=== PATIENT | female | born 1990 | race Caucasian/White ===

== ENCOUNTER 2019-01-22 07:23 | Day surgery (SDC) | payer BC ==
[~2019-01-22 07:23] MED LIST: CEFOXITIN/SWI 2gm 2 GM/20 ML SYR IVP SCH
--- OUTSIDE RECORDS SUMMARY | 2019-01-22 07:29 | XMS REPORT ---
:1990 Author Organization [facility] Address [address] [place] [address] Care Team Providers Name Role Phone Unavailable Unavailable Unavailable Payers Payer Name Policy Type Policy Number Effective Date Expiration Date Problems This patient has no known problems. Allergies, Adverse Reactions, Alerts Allergy Allergy Status Severity Reaction(s) Onset Inactive Treating Comments Name Type Date Date Clinician No Known DA Active U 2018-07 Allergies 00:00:0 0 Medications This patient has no known medications. Results Test Description Test Time Test Comments Text Results Atomic Results Result Comments AMNISURE (ROM) TEST 2018-08-14 00:27:00 Test Item Value Reference Range Comments AMNISURE (ROM) TEST (test code=AMNI) RUPTURED NON-RUPTURE : *Amnisure QC OK? YESAG HEPATITIS B [id number] 21:27:00 Test Item Value Reference Range Comments AG HEPATITIS B SURFACE (test code=HBSAG) NONREACTIVE NONREACTIVE AB HEPATITIS C [id number] 21:27:00 Test Item Value Reference Range Comments AB HEPATITIS C (test code=HCVAB) NONREACTIVE NONREACTIVE SIGNAL TO CUTOFF (test code=CUTOFF) 0.07 <0.80 AB [id number] 21:27:00 Test Item Value Reference Range Comments AB TREPONEMA (test code=TREPAB) NONREACTIVE NONREACTIVE AG HEPATITIS B [id number] 21:09:00 Test Item Value Reference Range Comments AG HEPATITIS B SURFACE (test code=HBSAG) NONREACTIVE NONREACTIVE AB HEPATITIS C [id number] 21:09:00 Test Item Value Reference Range Comments AB HEPATITIS C (test code=HCVAB) NONREACTIVE SIGNAL TO CUTOFF (test code=CUTOFF) <0.80 AB [id number] 21:09:00 Test Item Value Reference Range Comments AB TREPONEMA (test code=TREPAB) NONREACTIVE NONREACTIVE CBC W/AUTO [id number] 10:52:00 Test Item Value Reference Range Comments WHITE BLOOD CELL (test code=WBC) 10.3 K/mm3 6.6-12.1 RED BLOOD CELL (test code=RBC) 4.00 M/mm3 3.45-5.01 HEMOGLOBIN (test code=HGB) 12.6 g/dL 10.7-13.9 HEMATOCRIT (test code=HCT) 37.4 % 32.1-42.1 MEAN CELL VOLUME (test code=MCV) 94 fL 84.1-94.8 MEAN CELL HGB (test code=MCH) 31.5 pg 27-35 MEAN CELL HGB CONCETRATION (test code=MCHC) 33.7 gm/dL 32.2-34.1 RED CELL DISTRIBUTION WIDTH (test code=RDW) 12.2 % 12.4-16.5 PLATELET COUNT (test code=PLT) 250 K/mm3 133-385 IMMATURE PLATELET FRACTION (test code=IPF) 4.4 % 0.0-10.8 MEAN PLATELET VOLUME (test code=MPV) 10.4 fl 9.1-12.7 NEUTROPHIL % (test code=NT%) 78.6 % 56.5-79.4 LYMPHOCYTE % (test code=LY%) 13.3 % 14.3-34.3 MONOCYTE % (test code=MO%) 7.1 % 5.1-10.4 EOSINOPHIL % (test code=EO%) 0.4 % 0.1-3.0 BASOPHIL % (test code=BA%) 0.2 % 0.1-1.0 NEUTROPHIL # (test code=NT#) 8.1 K/mm3 LYMPHOCYTE # (test code=LY#) 1.4 K/mm3 MONOCYTE # (test code=MO#) 0.7 K/mm3 EOSINOPHIL # (test code=EO#) 0.04 K/mm3 BASOPHIL # (test code=BA#) 0.0 K/mm3 RBC MORPHOLOGY REQUIRED (test code=RBCM) NORMAL NORMAL PLATELET MORPHOLOGY REQUIRED (test code=PLTMR) NORMAL NORMAL
[2019-01-22] MEDS ORDERED: ROCURONIUM 50 MG/5 ML VIAL IV ONE (07:53)
[2019-01-22] MEDS ORDERED: LIDOCAINE 2% MPF 5 ML VIAL ONE (07:53)
[2019-01-22] MEDS ORDERED: dexAMETHasone 10 MG/ML VIAL ONE (07:53)
[2019-01-22] MEDS ORDERED: MIDAZOLAM HCL 2 MG/2 ML INJ ONE (07:53)
[2019-01-22] MEDS ORDERED: propofoL 200 MG/20 ML VIAL IV ONE (07:53)
[2019-01-22] MEDS ORDERED: GLYCOPYRROLATE 0.2 MG/ML SYR ONE (07:53)
[2019-01-22] MEDS ORDERED: FENTANYL CITR 100 MCG/2 ML ONE (07:53)
[2019-01-22] MEDS ORDERED: Ringers Lactate 1,000 ML IV ONE (07:54)
[2019-01-22] MEDS ORDERED: ONDANSETRON 4 MG/2 ML VIAL ONE ×3 (07:56→10:19)
[2019-01-22] MEDS ORDERED: CEFAZOLIN/SWI 1gm 0 GM/0 ML SYR ONE (07:56)
[2019-01-22] MEDS ORDERED: CEFOXITIN/SWI 1gm 1 GM/10 ML SYR ONE ×2 (08:12→08:13)
[2019-01-22] MEDS: BUPIVACA 0.5%/EPI 0.0005%/PF 30 ML VIAL ONE ×2 (08:35→09:40)
[2019-01-22] MEDS ORDERED: KETOROLAC 30 MG/ML INJ ONE (09:38)
--- NOTE | 2019-01-22 09:44 | P.OP ---
Preoperative diagnosis: Chronic Cholecystitis with Cholelithiasis Postoperative diagnosis: Chronic Cholecystitis with Cholelithiasis Primary procedure: Laparoscopic Cholecystectomy Anesthesia: GETA + Local Estimated blood loss: <5cc Specimen: Gallbladder Findings: Chronic inflammatory changes, gallstones Complications: None Transferred to: Recovery Room Condition: Good
[2019-01-22] MEDS: HYDROMORPHONE HCL 1 MG/ML INJ ONE ×2 (10:02→10:10)
[2019-01-22] MEDS ORDERED: HYDROMORPHONE HCL 1 MG/ML INJ ONE (10:14)
--- NOTE | 2019-01-22 10:40 | EKG ---
Test Date: 2019-01-22 Test Time: 08:12:30 Airfield Manager: GUANACO MEASUREMENT RESULTS: Intervals: Rate: 90 ME: 142 QRSD: 74 QT: 354 QTc: 433 [place]: P: 36 ME: 142 QRS: 31 T: 9 INTERPRETIVE STATEMENTS: Normal sinus rhythm Normal ECG No previous ECG available for comparison Electronically Signed On 01-22-19 10:39:41 ENGAGEMENT EXECUTIVE by [employer]
[2019-01-22 10:53] VITALS: TEMP 97.1
[2019-01-22] MEDS ORDERED: HYDROCODONE/APAP 5/325 MG TAB ONE (11:18)
[2019-01-22 11:23] VITALS: BP 106/67; O2SAT 98
--- NOTE | 2019-01-22 21:38 | OP ---
Date of Procedure: 01/22/2019 Surgeon: Ben Malhotra MD, Preoperative Diagnosis: Chronic cholecystitis with cholelithiasis. Postoperative Diagnosis: Chronic cholecystitis with cholelithiasis. Procedure Performed: Laparoscopic cholecystectomy. Anesthesia: General endotracheal plus local with 0.5% Marcaine with epinephrine. Estimated Blood Loss: Less than 5 mL. Specimen: Gallbladder. Findings: Chronic inflammatory changes and gallstones. Complications: None. Disposition: Transferred to the recovery room in good condition. Procedure In Detail: After informed consent was obtained, patient was brought to the operating room, prepped and draped in the usual sterile fashion. After adequate anesthesia was achieved, a supraumbilical area was anesthetized with 0.5%Marcaine, sharp incised. A 5-mm trocar was introduced into the abdomen without evidence of complication. Insufflation was obtained to 15 mmHg. There was no injury to vital structures upon entry to the abdomen. Additional trocar site was chosen in the epigastrium. This was similarly anesthetized and sharply incised. A 5-mm trocars was introduced into the abdomen without evidence of complication. The umbilical trocar was then up-sized to 12 mm under direct visualization without evidence of complication. Additional trocar site was chosen in the right upper quadrant, this was similarly anesthetized, sharply incised and 5-mm trocar was introduced into the abdomen without evidence of complication. The patient was positioned head up right-side up position. Ratcheted grasper was used to grasp the patient's gallbladder was found to be chock full of stones and the patient was placed on the right shoulder and dissection continued down on the Tariq pouch to dissect the cystic artery and cystic duct. The critical view of safety was obtained. At this time, skeletonized a tubal structures, double titanium clips were placed, doubly on the proximal side and singly on the distal side of both cystic duct and cystic artery. The Endo Kristina were then used to ligate the 2 above structures. The gallbladder was removed from the hepatic fossa using electrocautery without evidence of complication. There was no spillage of bile this procedure. The gallbladder placed in EndoCatch bag, removed the umbilical trocar. Reinflation was obtained at this time. The area was copiously irrigated multiple times and suctioned out until completely clear. Clips were found to be in good anatomic position. No additional hemostatic maneuvers required. The patient was positioned in the neutral position. The umbilical trocar was removed. The umbilical trocar site was closed using a Jose- Nathaly suture passer with 0 Vicryl with an interrupted fashion. Good approximation of tissues. The abdomen was then completely desufflated under direct visualization without evidence of complication. All trocars were then removed. All skin incisions copiously irrigated and closed with a 4-0 Monocryl in a running fashion Dermabond placed over top. Patient tolerated the procedure well without evidence of complication, transferred to PACU in good condition. All counts were correct at the end of the case. AILYN/DINO Voice ID: [id number] Report ID: [id number] AQUILES
== END 2019-01-22 11:55 | disposition home or self-care (01) ==
LOC: OR 07:23
PROVIDERS: ATTEND Surgery
PROC: 0FT44ZZ Resection of Gallbladder, Percutaneous Endoscopic Approach (ICD-10-PCS; principal; 2019-01-22 08:30)
DX: K80.10 Calculus of gallbladder with chronic cholecystitis without obstruction (principal); K21.9 Gastro-esophageal reflux disease without esophagitis; E07.9 Disorder of thyroid, unspecified
CPT/HCPCS: 93005; 81025; 88304; 47562; J2704; J2250; J3010; J1100; J1170 ×2; J7120; J2405 ×3; J0690